=== PATIENT | male | born 1945 | race Caucasian/White ===

== ENCOUNTER 2023-09-03 08:57 | Outpatient (CLI) | payer OTHER | END 2023-09-03 08:58 | disposition home or self-care (01) | LOC: CSHCT 08:57 | PROVIDERS: ATTEND Orthopaedic Surgery | DX: Z01.818 Encounter for other preprocedural examination (principal); M17.11 Unilateral primary osteoarthritis, right knee ==

== ENCOUNTER 2024-05-04 07:44 | Outpatient (CLI) | payer OTHER | END 2024-05-04 07:45 | disposition home or self-care (01) | LOC: CSHMRI 07:44 | DX: M51.362 Other intervertebral disc degeneration, lumbar region with discogenic back pain and lower extremity pain (principal); N28.1 Cyst of kidney, acquired | CPT/HCPCS: 72148 ==